=== PATIENT | female | born 1990 | race Caucasian/White ===

== ENCOUNTER → 2018-12-06 | Outpatient (CLI) | payer OTHER ==
[~2018-12-06] MED LIST: GADOBUTROL 7.5 MMOL/7.5 ML PFS ONE
== END | disposition home or self-care (01) ==
LOC: RAD 10:06
PROVIDERS: ATTEND Internal Medicine Hematology & Oncology
DX: R90.82 White matter disease, unspecified (principal); I67.89 Other cerebrovascular disease
CPT/HCPCS: 70553; A9585

== ENCOUNTER → 2019-02-06 | Outpatient (CLI) | payer OTHER | END | disposition home or self-care (01) | LOC: CFH 09:46 → EDSTATUS 10:15 | PROVIDERS: ATTEND Internal Medicine Hematology & Oncology | DX: C71.5 Malignant neoplasm of cerebral ventricle (principal) | CPT/HCPCS: 70553; A9585 ==